=== PATIENT | male | born 2000 | race Caucasian/White ===

== ENCOUNTER 2021-11-12 12:30 | Outpatient (RCR) | payer OTHER, SELFPAY ==
--- NOTE | 2021-08-20 15:14 | HP.PTEVAL ---
Patient's Visit Information QUINTON JACKMAN is a 20 year old M referred to Physical Therapy by Dr. Miah Peraza DPM with a diagnosis of Right ACL Repair 08/06/2021. Date of Evaluation: 08/20/21 Physical Therapist: Miranda Newton DPT - Visit Plan Frequency: 2-3x /Week Duration: 4 Weeks Plan: ACL reconstruction- WBAT- see protocol- please take 6 above patella girth measurements first follow up with pt in shorts. HEP Given IE: Quad set, SLR, seated heel slide, supine heel slide, seated extn stretch, supine bolster extn - Subjective Patient reports playing [employer] about 2 months- non contact. Student from [employer]- normally resides in [facility]. Patellar ACL reconstruction without meniscal repair. Surgery was 08/06/[address] Peraza. Returned to campus yesterday. Lives in the dorms- upstairs- elevator in building- communal bathrooms. Patient reports pain is achy when he is sitting- and after a bit of activity. Pain is located in the lateral aspect of the knee. The leg has some numbness in on the lateral aspect. Worst: 6/10 Fell and caught himself with his leg. Best: 0/10 Eases: ice. No radiating pain at this point. Sleep: not disturbed- uncomfortable and doesn't always feel as rested as normal. Takes ADHD medication- took a week break and is now back on them his body reaction is now weird- he is much less focused and light headed- has had a lot of problems getting to sleep and raised blood pressure. Has spoken to MD regarding. Is not taking pain medication at this point. PCP in [place] is follow this. Normally pretty active- ultimate frisbee- jogging whenever he doesn't have practice. He is on the [employer] team (practices 4 days a week). 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 Has not been cleared to drive until 4 weeks- he plans to use the van. Wears the TROM brace only when he is out and about. The brace is locked when he is up and moving but its locked out. He is WBAT PMHx: ADHD Meds: Concerta, Aspirin - Objective Posture: FH, RS- can correct with verbal cues but does not maintain. Gait: antalgic- decrease heel toe pattern due to diminished terminal knee extension. Ambulated in with TROM brace and crutches. HR/TR: able reports pulling with TR. SLS: weight shift but unable to take hands off wall due to decreased quad control. Palpation: tender along medial and lateral joint line. ROM: -10-85 degrees with pain at end ranges. Girth: will do next session- pants to tight to observe incision. Strength: Core: fair, Hip: 4+/5 throughout, SLR: severe lag- Quad Set: visible Ankle: 5/5. Flex: HS: severe, Gastroc: moderate. - Balance/Special Test Scores Lower Extremity Functional Score: 37 - Goals Goal 1:: Patient will be I with HEP and progression Goal Time Frame: 4-6 Weeks Goal 2:: Patient will demo quad girth within 1 cm of uninvolved side Goal Time Frame: 4-6 Weeks Goal 3:: Patient will ambulate >300 feet with a normalized gait pattern Goal Time Frame: 4-6 Weeks Goal 4:: Patient will demo 0-125 degrees of ROM in the right knee Goal Time Frame: 4-6 Weeks Goal 5:: Patient will report return to all normal ADL's Goal Time Frame: 4-6 Weeks - Rehabilitation Potential Physical Therapy Diagnosis: Patient presents with hypomobility- he has decrease ROM, LE and core strength/stabilization, flex and muscular endurance leading to abnormal gait and decreased ability to perform ADL's/recreational activities. Rehabilitation Potential: Good - Anticipated Interventions Patient/Client Instruction: Educate patient on: Benefits of Fitness Program Therapeutic Exercise to Include: Strength training, Power training, Endurance training, Balance training, Coordination, Agility training, Body mechanics, Postural training, Flexibilty training, Gait and locomotor training, Neuromotor development, Passive ROM, Active ROM, Dynamic Lumbar Stabilization, Scapular Strength/Stabilization For the Purpose of:: To improve muscle performance and motor function Thank you for the opportunity to evaluate your patient. For Medicare and Medicare HMO plans, please review the plan of care and approve it. It will need to be FAXED BACK to us at [phone] for Medicare purposes. For Medicare only, by signing this I certify the plan of care. Please let me know if there are questions or concerns regarding this plan of care. Physician Signature: Date:
--- NOTE | 2021-09-24 11:56 | HP.PTREVAL_ITS ---
Dr. Miah Peraza, DPCaroline, It has been my pleasure to treat QUINTON JACKMAN over the last 11 visits for Right ACL Repair 08/06/2021. Please see the progress note below for an update on the physical therapy plan of care! Subjective: Patient reports that the knee is good- he feels that its more achy over the past week- mostly in the anterior knee- almost like a line down the middle. Worst: 6-7/10 when he tried to squat all the way down. Normally 0- 1/10. Sleep: not disturbed. Gets two weeks for spring break will be gone for it (Last two weeks of September). Plans to go home for the summer. Objective/Function: Posture: good throughout session Gait: no deviation noted SLS: 30 sec without loss of balance- feels increase energy to stand on that limb Palpation: tender along medial and lateral joint line. ROM: 0-140 degrees Girth: Patella: 37.5, 6 above: 50.5 cm Strength: Core: fair, Hip: 4+/5 Knee: Right: flexion: 45, 47, extn: 49, 46 Left: Flexion: 60, 65 Extn: 70Flex: HS: severe, Gastroc: moderate. Plan Plan: ACL reconstruction 08/06/21 Balance/Gait/Functional tests - Balance/Special Test Scores Lower Extremity Functional Score: 43 Goals Goal 1:: Patient will be I with HEP and progression Goal Time Frame: 4-6 Weeks Goal 2:: Patient will demo quad girth within 1 cm of uninvolved side Goal Time Frame: 4-6 Weeks Goal 3:: Patient will ambulate >300 feet with a normalized gait pattern Goal Time Frame: 4-6 Weeks Goal 4:: Patient will demo 0-125 degrees of ROM in the right knee Goal Time Frame: 4-6 Weeks Goal 5:: Patient will report return to all normal ADL's Goal Time Frame: 4-6 Weeks Anticipated Interventions Patient/Client Instruction: Educate patient on: Benefits of Fitness Program Therapeutic Exercise to Include: Strength training, Power training, Endurance training, Balance training, Coordination, Agility training, Body mechanics, Postural training, Flexibilty training, Gait and locomotor training, Neuromotor development, Passive ROM, Active ROM, Dynamic Lumbar Stabilization, Scapular Strength/Stabilization For the Purpose of:: To improve muscle performance and motor function Please do not hesitate to contact me at [phone] by phone or if you have questions or concerns regarding this new plan of care! Sincerely, RITA StokesT
--- NOTE | 2021-11-12 12:58 | HP.PTDCSUM_ITS ---
It has been my pleasure to treat QUINTON JACKMAN referred by Dr. Miah Peraza DPM, with the diagnosis of Right ACL Repair 08/06/2021 for a total of 17 visit(s). Discharge Date: Please see the following information for a summary of their discharge status. Subjective: Patient reports that he thinks the knee is pretty tight- he has not been doing any exercises due to being super stressed with school. Does have achy pains. He is not really sure where his plan is for his knee- he is dealing with a lot at school. Plans to study abroad-this will be his last visit and he will continue I or find a PT in [place] or wherever he ends up. Right knee Pain Intensity (Out of 10): 3 % Improvement: 90 Objective/Function: Right extn: 73, 70 left extn: 85, 93 Left flexion: 60, 61 Right flexion: 61, 72. ROM: 0-140 degrees Goal 1:: Patient will be I with HEP and progression Goal 2:: Patient will demo quad girth within 1 cm of uninvolved side Goal 3:: Patient will ambulate >300 feet with a normalized gait pattern Goal 4:: Patient will demo 0-125 degrees of ROM in the right knee Goal 5:: Patient will report return to all normal ADL's Plan: Discharge to home exercise program and follow up with PT wherever he ends up If there are questions or concerns regarding this patient's physical therapy, please feel free to call me at [phone]. Thank you for the referral of this patient. Sincerely, Miranda Newton, RITAT Balance/Gait/Functional tests - Balance/Special Test Scores Lower Extremity Functional Score: 56
== END 2021-11-12 19:00 | disposition home or self-care (01) ==
LOC: PT 12:30
PROVIDERS: Referring Provider Podiatrist Foot & Ankle Surgery; Visit Provider Podiatrist Foot & Ankle Surgery
DX: S83.511D Sprain of anterior cruciate ligament of right knee, subsequent encounter (principal); X58.XXXD Exposure to other specified factors, subsequent encounter
CPT/HCPCS: 97110; 97162; 97164